=== PATIENT | male | born 1950 | race Caucasian/White ===

== ENCOUNTER → 2019-10-13 | Outpatient (CLI) | payer OTHER ==
[~2019-10-13] MED LIST: ASPIRIN EC81 M1 PO; BAYER CHEWABLE81 MG PO; CIPRO250 MG PO; CIPROFLOXACIN500 M1 PO; COLACE100 MG PO; FLOMAX; FLOMAX0.4 MG PO; IBUPROFEN 600600 M1 PO; LORTAB 5 MG/5001 TA1 PO; MULTIVITAMINS; NORCO 5-325 TA1 EACH PO; SYNTHROID112 MCG PO; TUMS PO
== END ==
LOC: LAB 10:17
PROVIDERS: ATTEND Neuromusculoskeletal Medicine & OMM
DX: R50.9 Fever, unspecified (principal); J02.9 Acute pharyngitis, unspecified; Z20.828 Contact with and (suspected) exposure to other viral communicable diseases